=== PATIENT | male | born 1940 | race Two or more races ===

== ENCOUNTER 2018-03-03 13:34 | Outpatient (CLI) | payer OTHER | END 2018-03-03 13:40 | disposition home or self-care (01) | LOC: RAD 13:34 | DX: M54.5 Low back pain (principal) ==

== ENCOUNTER 2018-03-15 07:50 | Outpatient (CLI) | payer OTHER | END 2018-03-15 07:56 | disposition home or self-care (01) | LOC: TOM 07:50 | DX: Q41.9 Congenital absence, atresia and stenosis of small intestine, part unspecified (principal); E66.01 Morbid (severe) obesity due to excess calories; R06.09 Other forms of dyspnea ==

== ENCOUNTER 2019-07-16 14:39 | Emergency (ER) | payer OTHER ==
[~2019-07-16] VITALS: Ht 182.9 cm; Wt 142.9 kg
[2019-07-16] MEDS ORDERED: PRESERVISION A1 EAC1 (14:50)
[2019-07-16] MEDS ORDERED: SALMETEROL (14:50)
[2019-07-16] MEDS ORDERED: FLUTICASONE (14:50)
[2019-07-16] MEDS ORDERED: VALSARTAN-HCTZ1 EAC4 (14:51)
[2019-07-16] MEDS ORDERED: CARVEDILOL6.25 MG (14:51)
[2019-07-16] MEDS ORDERED: FUROSEMIDE40 MG (14:52)
[2019-07-16] MEDS ORDERED: ASPIR 8181 MG (14:52)
[2019-07-16] MEDS ORDERED: DOXAZOSIN MESYLA2 MG (14:52)
[2019-07-16] MEDS ORDERED: XOPENEX0.63 MG/3 (14:53)
[2019-07-16] MEDS ORDERED: XOLEGEL45 GM (14:53)
== END 2019-07-16 23:14 | disposition home or self-care (01) ==
LOC: ER 14:39
DX: K57.91 Diverticulosis of intestine, part unspecified, without perforation or abscess with bleeding (principal); D64.9 Anemia, unspecified

== ENCOUNTER 2019-12-12 15:27 | Outpatient (CLI) | payer OTHER ==
[~2019-12-12 15:27] MED LIST: ASPIR 8181 MG; CARVEDILOL6.25 MG; DOXAZOSIN MESYLA2 MG; FLUTICASONE; FUROSEMIDE40 MG; PRESERVISION A1 EAC1; SALMETEROL; VALSARTAN-HCTZ1 EAC4; XOLEGEL45 GM; XOPENEX0.63 MG/3
== END 2019-12-12 15:34 | disposition home or self-care (01) ==
LOC: RAD 15:27
PROVIDERS: ATTEND Family Medicine
DX: C34.12 Malignant neoplasm of upper lobe, left bronchus or lung (principal); M54.5 Low back pain

== ENCOUNTER 2020-06-07 13:51 | Outpatient (CLI) | payer OTHER | END 2020-06-07 14:11 | disposition home or self-care (01) | LOC: SONOGRAMA 13:51 | PROVIDERS: ATTEND Urology | DX: N40.0 Benign prostatic hyperplasia without lower urinary tract symptoms (principal); N32.81 Overactive bladder ==

== ENCOUNTER 2020-11-05 12:52 | Outpatient (CLI) | payer OTHER | END 2020-11-05 15:50 | disposition home or self-care (01) | LOC: RAD 12:52 | DX: C34.12 Malignant neoplasm of upper lobe, left bronchus or lung (principal) ==

== ENCOUNTER 2021-02-11 09:45 | Inpatient (IN) | payer OTHER ==
[~2021-02-11] VITALS: Ht 182.9 cm; Wt 127.0 kg
[2021-02-11] MEDS ORDERED: VALSARTAN80 MG PO (12:50)
[2021-02-11] MEDS ORDERED: LASIX40 MG PO (12:50)
[2021-02-11] MEDS ORDERED: DOCUSATE SODIU250 MG PO (12:51)
[2021-02-11] MEDS ORDERED: KONSYL6 GM PO (12:51)
[2021-02-11] MEDS ORDERED: TAMS0.4C PO (12:52)
[2021-02-11] MEDS ORDERED: SULFAMETH PO (12:52)
[2021-02-11] MEDS ORDERED: DITROPAN XL10 MG PO (12:52)
[2021-02-12] MEDS ORDERED: FLUTICASONE-SA1 EAC4 (11:50)
[2021-02-12] MEDS ORDERED: BACTRIM DS TAB1 EACH (11:50)
[2021-02-12] MEDS ORDERED: ADVAIR 100-501 EACH (11:51)
== END 2021-02-13 11:40 | disposition home or self-care (01) | DRG 714 ==
LOC: SURH 02-12 09:36 → O/R 02-12 09:36 → SURH 02-12 09:45
PROVIDERS: ADMIT Urology; ATTEND Urology
PROC: 0VT08ZZ Resection of Prostate, Via Natural or Artificial Opening Endoscopic (ICD-10-PCS; principal; 2021-02-12 18:15)
DX: N42.31 Prostatic intraepithelial neoplasia (principal); I10 Essential (primary) hypertension; N40.1 Benign prostatic hyperplasia with lower urinary tract symptoms; N32.81 Overactive bladder

== ENCOUNTER 2023-03-25 08:24 | Outpatient (CLI) | payer OTHER ==
[~2023-03-25 08:24] MED LIST changes: +ADVAIR 100-501 EACH; +BACTRIM DS TAB1 EACH; +DITROPAN XL10 MG PO; +DOCUSATE SODIU250 MG PO; +FLUTICASONE-SA1 EAC4; +KONSYL6 GM PO; +LASIX40 MG PO; +SULFAMETH PO; +TAMS0.4C PO; +VALSARTAN80 MG PO
== END 2023-03-25 08:27 | disposition home or self-care (01) ==
LOC: TOM 08:24
PROVIDERS: ATTEND Colon & Rectal Surgery
DX: K56.600 Partial intestinal obstruction, unspecified as to cause (principal)

== ENCOUNTER 2024-02-09 12:34 | Inpatient (IN) | payer OTHER ==
[~2024-02-09] VITALS: Ht 182.9 cm; Wt 255.8 kg
[2024-02-09] MEDS ORDERED: CARVEDILOL6.25 MG PO (13:34)
[2024-02-09] MEDS ORDERED: OXYBUTYNIN CHLO10 MG PO (13:34)
[2024-02-09] MEDS ORDERED: TERBINAFINE HC250 MG PO (13:36)
[2024-02-09] MEDS ORDERED: TRELEGY ELLIPT1 EACH NASAL (13:37)
--- NOTE | 2024-02-09 13:37 | NUR ---
PACIENTE REFIERE [place] ANAL HX DE HEMORROIDES, DESDE HACE 1 MES. SE ENCUENTRA EN TRATAMIENTO PARA DISMINUCION DE PESO ZEPBOUND SEMANAL DESDE HACE 3 MESES. JALLOH CARDIOLOGO DESCONTINUO ASPIRINA 81 MG POR EL [place]. SE MIDEN Y REPORTAN SIGNOS VITALES B/P-80/60 MM/HG, HR-87. SE UBICA EN AREA DE OBSERVACION.
[2024-02-09] MEDS ORDERED: 0.9 % SODIUM CHLORIDE 1,000 ML IV STA (14:17)
--- NOTE | 2024-02-09 14:44 | NUR ---
SE EDUCA A PACIENTE SOBRE TX MEDICO, HUEY REFIERE ENTENDER. SE EXTRAEN MUESTRAS DE LABORATORIO Y SE ADMINISTRAN MEDICAMENTOS VICKEY ORDEN MEDICA.
[2024-02-09 15:04] LABS: HEMATOCRIT 35.5 % (39.0-48.0); HEMOGLOBIN 11.8 g/dL (13-16.00); MEAN CELL VOLUME 83.6 fL (80.0-100.00); MEAN CORPUSCULAR HEMOGLOBIN 27.7 pg (27.00-32.0); MEAN CORPUSCULAR HGB CONC 33.2 g/dl (32.0-36.0); PLATELET COUNT 204 K/uL (150-450); RED BLOOD COUNT 4.24 M/uL (4.00-6.00); RED CELL DISTRIBUTION WIDTH 14.5 % (11.5-14.5)
[2024-02-09 15:25] LABS: ALBUMIN 2.6 gm/dL (3.4-5.0); BILIRUBIN TOTAL 0.72 mg/dL (0.3-1.2); BILIRUBIN,CONJUGATED 0.26 mg/dL (0.0-0.2); BILIRUBIN,UNCONJUGATED 0.46 mg/dL (0.0-0.6); CALCIUM 10.3 mg/dL (8.5-10.1); CREATININE SERUM 1.53 mg/dL (0.70-1.30); GFR 43.68; TOTAL PROTEIN 6.8 gm/dL (6.4-8.2)
[2024-02-09 15:26] LABS: INR 1.1; PARTIAL THROMBOPLASTIN TIME 30.8 SECONDS (22.0-34.0); PROTHROMBIN TIME 11.9 SECONDS (9.0-11.5)
[2024-02-09 15:30] LABS: POTASSIUM 2.92 mEq/L (3.5-5.1)
[2024-02-09] MEDS ORDERED: POTASSIUM CHLORIDE/NACL 0.9% 20 MEQ/1,000 ML PIGGYBAG IV ONE (16:00)
[2024-02-09 16:08] LABS: URINE APPEARANCE Clear; URINE BILIRRUBIN Negative (NEGATIVE); URINE BLOOD Negative; URINE COLOR Yellow; URINE GLUCOSE Negative (NEGATIVE); URINE KETONE Negative (NEGATIVE); URINE LEUKOCYTE Negative; URINE NITRATE Negative; URINE PROTEIN Negative (NEGATIVE); URINE UROBILINOGEN 0.2 E.U./dl
[2024-02-09 16:11] LABS: URINE BACTERIA 161.2 uL (0.0-1933); URINE CAST 3.51 uL (0.0-1.40); URINE EPITHELIAL CELLS 52.3 uL (0.0-38.8); URINE WBC 12.8 uL (0.0-23.2)
[2024-02-09] MEDS ORDERED: POLYETHYLENE GLYCOL 3350 17 GM BLIST.PACK PO ONE (19:45)
[2024-02-09] MEDS ORDERED: ACETAMINOPHEN 500 MG GEL..CAP PO PRN (19:45)
[2024-02-09] MEDS ORDERED: HYDROCORTISONE 2.5% 20 GM TUBE RECTAL SCH (19:45)
[2024-02-09] MEDS ORDERED: ONDANSETRON HCL 4 MG in 0.9 % SODIUM CHLORIDE 50 ML IV PRN (19:45)
[2024-02-09] MEDS ORDERED: 0.9 % SODIUM CHLORIDE 1,000 ML IV SCH (20:00)
[2024-02-09 20:56] LABS: MAGNESIUM 1.9 mg/dL (1.8-2.4)
[2024-02-09] MEDS ORDERED: CARVEDILOL 6.25 MG TABLET PO SCH (21:00)
[2024-02-09] MEDS ORDERED: POTASSIUM CHLORIDE IN WATER 100 ML IV SCH (21:00)
[2024-02-09 21:15] LABS: PHOSPHOROUS 1.8 mg/dL (2.5-4.9)
[2024-02-10] MEDS ORDERED: IPRATROPIUM BROMIDE 0.5 MG/2.5 ML AMPUL.NEB IH SCH (01:00)
[2024-02-10 03:26] VITALS: BP 118/70; O2SAT 96
[2024-02-10 06:47] LABS: ALBUMIN 2.5 gm/dL (3.4-5.0); BILIRUBIN TOTAL 0.65 mg/dL (0.3-1.2); CALCIUM 9.7 mg/dL (8.5-10.1); CREATININE SERUM 1.21 mg/dL (0.70-1.30); GFR 57.27; GLOBULINA 3.1 G/DL (2.4-3.5); POTASSIUM 3.31 mEq/L (3.5-5.1); TOTAL PROTEIN 5.6 gm/dL (6.4-8.2)
[2024-02-10] MEDS ORDERED: POTASSIUM PHOS,M-BASIC-D-BASIC 15 MM in 0.9 % SODIUM CHLORIDE 250 ML IV NR (08:15)
[2024-02-10 08:46] VITALS: BP 134/81
[2024-02-10] MEDS ORDERED: TAMSULOSIN HCL 0.4 MG CAP PO SCH (09:00)
[2024-02-10] MEDS ORDERED: FAMOTIDINE/PF 20 MG in 0.9 % SODIUM CHLORIDE 8 ML IV PUSH SCH (09:00)
[2024-02-10] MEDS ORDERED: OXYBUTYNIN CHLORIDE 5 MG TABLET PO SCH (09:00)
[2024-02-10] MEDS ORDERED: HYDROCORTISONE 2.5% 20 GM TUBE RECTAL SCH (09:00)
[2024-02-10] MEDS ORDERED: NAPH,MB-DB/K PH,MBDB 1 PKT PACKET PO SCH (09:00)
[2024-02-10] MEDS ORDERED: ENOXAPARIN SODIUM 40 MG/0.4 ML SYRINGE SUBCUTANEO SCH (09:00)
[2024-02-10] MEDS ORDERED: POTASSIUM CHLORIDE 20MEQ/100ML H2O PB IV NR (10:15)
[2024-02-10] MEDS ORDERED: AMINO ACIDS/PROTEIN HYDROLYS 30 ML BLIST.PACK PO SCH (17:00)
[2024-02-10 18:19] VITALS: BP 105/71; O2SAT 99
[2024-02-11 01:49] VITALS: BP 106/65; O2SAT 98
[2024-02-11 06:33] LABS: HEMATOCRIT 33.6 % (39.0-48.0); HEMOGLOBIN 11.5 g/dL (13-16.00); MEAN CELL VOLUME 84.5 fL (80.0-100.00); MEAN CORPUSCULAR HEMOGLOBIN 28.8 pg (27.00-32.0); MEAN CORPUSCULAR HGB CONC 34.1 g/dl (32.0-36.0); PLATELET COUNT 191 K/uL (150-450); RED BLOOD COUNT 3.98 M/uL (4.00-6.00); RED CELL DISTRIBUTION WIDTH 13.9 % (11.5-14.5)
[2024-02-11 06:42] LABS: CALCIUM 9.4 mg/dL (8.5-10.1); CREATININE SERUM 1.06 mg/dL (0.70-1.30); GFR 66.72; MAGNESIUM 1.7 mg/dL (1.8-2.4); PHOSPHOROUS 2.4 mg/dL (2.5-4.9); POTASSIUM 3.67 mEq/L (3.5-5.1)
[2024-02-11] MEDS ORDERED: POTASSIUM PHOS,M-BASIC-D-BASIC 15 MM in 0.9 % SODIUM CHLORIDE 250 ML IV NR (07:45)
[2024-02-11] MEDS ORDERED: MAGNESIUM SULFATE IN WATER 2 GM/50 ML PIGGYBAG IV NR (08:16)
[2024-02-11 09:44] VITALS: BP 124/72
== END 2024-02-11 11:35 | disposition home or self-care (01) | DRG 378 ==
LOC: ER 12:35 → MEDJ 20:16
PROVIDERS: General Practice; ADMIT Internal Medicine; ATTEND Internal Medicine
PROC: BW21ZZZ Computerized Tomography (CT Scan) of Abdomen and Pelvis (ICD-10-PCS; principal; 2024-02-09)
DX: K62.5 Hemorrhage of anus and rectum (principal); I13.0 Hypertensive heart and chronic kidney disease with heart failure and stage 1 through stage 4 chronic kidney disease, or unspecified chronic kidney disease; N17.9 Acute kidney failure, unspecified; I50.9 Heart failure, unspecified; E87.6 Hypokalemia; E78.5 Hyperlipidemia, unspecified; E11.22 Type 2 diabetes mellitus with diabetic chronic kidney disease; N18.9 Chronic kidney disease, unspecified; Z79.4 Long term (current) use of insulin

== ENCOUNTER 2024-03-03 21:01 | Inpatient (IN) | payer OTHER ==
[~2024-03-03] VITALS: Ht 182.9 cm; Wt 122.5 kg
[~2024-03-03 21:01] MED LIST changes: +CARVEDILOL6.25 MG PO; +OXYBUTYNIN CHLO10 MG PO; +TERBINAFINE HC250 MG PO; +TRELEGY ELLIPT1 EACH NASAL
--- NOTE | 2024-03-03 21:26 | NUR ---
SE RECIBE PTE ALERTA Y ORIENTADO EN PERSONA EN AMBULNACIA EN COMPANIA DE FAMILIAR Y PARAMEDICOS. FAMILIAR REFIERE DEBILIDAD DESDE HACE VARIOS OSHEA. SE REALIZA EKG Y SE PRESENTA A DR. AUSTIN EL CUAL EVALUA Y FIRMA EL MISMO,
[2024-03-03 22:23] LABS: HEMATOCRIT 31.1 % (39.0-48.0); HEMOGLOBIN 10.4 g/dL (13-16.00); MEAN CELL VOLUME 82.8 fL (80.0-100.00); MEAN CORPUSCULAR HEMOGLOBIN 27.8 pg (27.00-32.0); MEAN CORPUSCULAR HGB CONC 33.6 g/dl (32.0-36.0); PLATELET COUNT 304 K/uL (150-450); RED BLOOD COUNT 3.75 M/uL (4.00-6.00); RED CELL DISTRIBUTION WIDTH 14.6 % (11.5-14.5)
[2024-03-03 22:38] LABS: CALCIUM 9.7 mg/dL (8.5-10.1); CREATININE SERUM 1.28 mg/dL (0.70-1.30); GFR 53.67; POTASSIUM 4.15 mEq/L (3.5-5.1)
--- NOTE | 2024-03-03 23:00 | NUR ---
SE RECIBE PTE ALERTA ORIENTADO X3 EN ELIZABETH CON BARANDAS ELEVADAS POR JALLOH SEGURIDAD.PENDIENTE CT Y RESULTADOS DE LABORATORIO.
[2024-03-04 00:27] LABS: ABG PH 7.445 (7.35-7.45); ABG PO2 67.9 mmHg (80-100); ABG pCO2 38.3 mmHg (35-45); BASE EXCESS 1.8 mmol/l; BICARBONATE 25.7 mmol/l (23-25); SaO2 94.2 %
[2024-03-04 00:28] LABS: Tco2 26.9 mmol/l; allen test SATISFACTORY; o2 21 %; puncture site RADIAL LEFT
[2024-03-04 00:56] LABS: URINE APPEARANCE Cloudy; URINE BILIRRUBIN Negative (NEGATIVE); URINE BLOOD Negative; URINE COLOR Yellow; URINE GLUCOSE Negative (NEGATIVE); URINE KETONE Negative (NEGATIVE); URINE LEUKOCYTE Negative; URINE NITRATE Negative; URINE PROTEIN 30 (NEGATIVE); URINE UROBILINOGEN 0.2 E.U./dl
[2024-03-04 01:00] LABS: URINE BACTERIA 28.9 uL (0.0-1933); URINE CAST 5.64 uL (0.0-1.40); URINE EPITHELIAL CELLS 51.1 uL (0.0-38.8); URINE RBC 6.5 uL (0.0-20.8); URINE WBC 8.8 uL (0.0-23.2)
[2024-03-04] MEDS ORDERED: levoFLOXacin IN DEXTROSE 5 % 500MG/100ML PIGGYBAG IV STA (03:48)
--- NOTE | 2024-03-04 05:17 | NUR ---
SE RECIBE PTE ALERTA ORIENTADO X3.SE KAREN MUESTRAS DE LABATORIO USANDO MEDIDAS ASEPTICAS.SE ADMINISTRAN MEDICAMENTOS VICKEY ORDEN MEDICA.PTE MANEJADO POR MICHELE BOUDREAUX.
[2024-03-04 06:09] LABS: INR 1.13; PARTIAL THROMBOPLASTIN TIME 29.5 SECONDS (22.0-34.0); PROTHROMBIN TIME 12.2 SECONDS (9.0-11.5)
[2024-03-04 06:13] LABS: ALBUMIN 1.8 gm/dL (3.4-5.0); BILIRUBIN TOTAL 0.36 mg/dL (0.3-1.2); CALCIUM 10.3 mg/dL (8.5-10.1); CREATININE SERUM 1.41 mg/dL (0.70-1.30); GLOBULINA 4.4 G/DL (2.4-3.5); POTASSIUM 4.35 mEq/L (3.5-5.1); TOTAL PROTEIN 6.2 gm/dL (6.4-8.2)
--- NOTE | 2024-03-04 08:26 | NUR ---
SE RECIBE PACIENTE ALERTA Y ORIENTADO X3 EN COMPANIA DE FAMILIAR EL CUAL AL MOMENTO SE ENCUENTRA EN POSICION SEMI SENTADA CON ANGIO #18 EN STACIAO CON. SE MANTIENE BAJO OBSERVACION PARA CONTIUIDAD DE TRATAMIENTO.
[2024-03-04] MEDS ORDERED: 0.9 % SODIUM CHLORIDE 1,000 ML IV SCH (18:45)
[2024-03-04] MEDS ORDERED: IPRATROPIUM BROMIDE 0.5 MG/2.5 ML AMPUL.NEB IH SCH (18:47)
[2024-03-04] MEDS ORDERED: PIPERACILLIN/TAZOBACTAM SODIUM 3.375 GM in DEXTROSE 5 % IN WATER 100 ML IV SCH (18:49)
[2024-03-04] MEDS ORDERED: ACETAMINOPHEN 500 MG GEL..CAP PO PRN (19:00)
[2024-03-04] MEDS ORDERED: LEVALBUTEROL HCL 1.25 MG/3 ML SOLUTION IH SCH (20:00)
[2024-03-04] MEDS ORDERED: CARVEDILOL 6.25 MG TABLET PO SCH (21:00)
[2024-03-04 21:13] VITALS: BP 101/63; O2SAT 96
[2024-03-04 21:44] LABS: INR 1.14; PARTIAL THROMBOPLASTIN TIME 29.1 SECONDS (22.0-34.0); PROTHROMBIN TIME 12.3 SECONDS (9.0-11.5)
[2024-03-04 23:54] VITALS: BP 109/72; O2SAT 95
[2024-03-05] MEDS ORDERED: ENOXAPARIN SODIUM 40 MG/0.4 ML SYRINGE SUBCUTANEO SCH (09:00)
[2024-03-05] MEDS ORDERED: TAMSULOSIN HCL 0.4 MG CAP PO SCH (09:00)
[2024-03-05] MEDS ORDERED: FAMOTIDINE/PF 20 MG in 0.9 % SODIUM CHLORIDE 8 ML IV PUSH SCH (09:00)
[2024-03-05] MEDS ORDERED: MAGNESIUM SULFATE IN WATER 50 ML IV ONE (10:00)
[2024-03-05 16:50] VITALS: BP 112/76; O2SAT 93
[2024-03-05 23:46] VITALS: BP 115/71; O2SAT 98
[2024-03-06 06:20] LABS: HEMATOCRIT 30.3 % (39.0-48.0); HEMOGLOBIN 10.1 g/dL (13-16.00); MEAN CORPUSCULAR HEMOGLOBIN 27.6 pg (27.00-32.0); MEAN CORPUSCULAR HGB CONC 33.2 g/dl (32.0-36.0); PLATELET COUNT 287 K/uL (150-450); RED BLOOD COUNT 3.65 M/uL (4.00-6.00); RED CELL DISTRIBUTION WIDTH 14.4 % (11.5-14.5)
[2024-03-06 07:18] LABS: CALCIUM 9.5 mg/dL (8.5-10.1); CREATININE SERUM 1.49 mg/dL (0.70-1.30); GFR 45.04; POTASSIUM 4.49 mEq/L (3.5-5.1)
[2024-03-06 08:00] VITALS: BP 118/71; O2SAT 96
[2024-03-06] MEDS ORDERED: CEFTRIAXONE SODIUM 2,000 MG in 0.9 % SODIUM CHLORIDE 100 ML IV SCH (09:00)
[2024-03-06] MEDS ORDERED: METRONIDAZOLE/SODIUM CHLORIDE 100 ML IV SCH (09:00)
[2024-03-06 16:07] VITALS: BP 166/92; O2SAT 97
[2024-03-07 00:45] VITALS: BP 133/83; O2SAT 94
[2024-03-07 08:00] VITALS: BP 128/80; O2SAT 99
[2024-03-07 16:00] VITALS: BP 141/92; O2SAT 96
[2024-03-07 17:45] LABS: HEMATOCRIT 31.1 % (39.0-48.0); HEMOGLOBIN 10.2 g/dL (13-16.00); MEAN CELL VOLUME 83.5 fL (80.0-100.00); MEAN CORPUSCULAR HEMOGLOBIN 27.3 pg (27.00-32.0); MEAN CORPUSCULAR HGB CONC 32.7 g/dl (32.0-36.0); PLATELET COUNT 305 K/uL (150-450); RED BLOOD COUNT 3.73 M/uL (4.00-6.00); RED CELL DISTRIBUTION WIDTH 14.9 % (11.5-14.5)
[2024-03-07 17:50] LABS: ALBUMIN 1.5 gm/dL (3.4-5.0); BILIRUBIN TOTAL 0.27 mg/dL (0.3-1.2); CALCIUM 9.7 mg/dL (8.5-10.1); CREATININE SERUM 1.5 mg/dL (0.70-1.30); GFR 44.69; GLOBULINA 3.5 G/DL (2.4-3.5); POTASSIUM 4.51 mEq/L (3.5-5.1)
[2024-03-08 00:59] VITALS: BP 131/74; O2SAT 90
[2024-03-08 08:00] VITALS: BP 129/91; O2SAT 91
[2024-03-08 10:52] LABS: ABG PH 7.402 (7.35-7.45); ABG PO2 65.8 mmHg (80-100); ABG pCO2 35.6 mmHg (35-45); BASE EXCESS -2.4 mmol/l; BICARBONATE 21.7 mmol/l (23-25); SaO2 92.6 %; Tco2 22.8 mmol/l
[2024-03-08 11:00] LABS: allen test SATISFACTORY; o2 28 %; puncture site RADIAL RIGHT
[2024-03-08] MEDS ORDERED: FUROsemide 20 MG/2 ML VIAL IV NR (14:00)
[2024-03-08 15:33] LABS: HEMATOCRIT 30.9 % (39.0-48.0); HEMOGLOBIN 9.9 g/dL (13-16.00); MEAN CELL VOLUME 84.4 fL (80.0-100.00); MEAN CORPUSCULAR HEMOGLOBIN 27.1 pg (27.00-32.0); MEAN CORPUSCULAR HGB CONC 32.1 g/dl (32.0-36.0); PLATELET COUNT 284 K/uL (150-450); RED BLOOD COUNT 3.67 M/uL (4.00-6.00); RED CELL DISTRIBUTION WIDTH 14.6 % (11.5-14.5)
[2024-03-08 16:10] VITALS: BP 131/76; O2SAT 90
[2024-03-08 20:03] LABS: PLEURAL FLUID APPEARANCE HAZY; PLEURAL FLUID COLOR YELLOW
[2024-03-08 20:22] LABS: GLU PLEURAL FLUID 126 mg/dl; LDH PLEURAL FLUID 67 U/L; TP PLEURAL FLUID 1.8 g/dl
[2024-03-08 20:31] LABS: CHOL PLEURAL FLUID < 50 mg/dl
[2024-03-08 21:37] LABS: MONONUCLEAR 88 %; POLYMORPHONUCLEAR 12 %
[2024-03-09 00:20] VITALS: BP 106/76; O2SAT 92
[2024-03-09] MEDS ORDERED: MEROPENEM 500 MG/VIAL VIAL IV SCH (06:00)
[2024-03-09] MEDS ORDERED: 0.9 % SODIUM CHLORIDE 1,000 ML IV SCH ×2 (09:00→09:15)
[2024-03-09] MEDS ORDERED: FUROsemide 20 MG/2 ML VIAL IV SCH (09:00)
[2024-03-09 09:03] LABS: HEMATOCRIT 31.5 % (39.0-48.0); HEMOGLOBIN 10.3 g/dL (13-16.00); MEAN CELL VOLUME 83.7 fL (80.0-100.00); MEAN CORPUSCULAR HEMOGLOBIN 27.4 pg (27.00-32.0); MEAN CORPUSCULAR HGB CONC 32.8 g/dl (32.0-36.0); PLATELET COUNT 295 K/uL (150-450); RED BLOOD COUNT 3.77 M/uL (4.00-6.00); RED CELL DISTRIBUTION WIDTH 14.8 % (11.5-14.5)
[2024-03-09 09:16] VITALS: BP 113/73; O2SAT 81
[2024-03-09 09:43] LABS: ALBUMIN 1.5 gm/dL (3.4-5.0); BILIRUBIN TOTAL 0.3 mg/dL (0.3-1.2); CALCIUM 9.9 mg/dL (8.5-10.1); CREATININE SERUM 1.61 mg/dL (0.70-1.30); GFR 41.19; GLOBULINA 3.1 G/DL (2.4-3.5); POTASSIUM 4.59 mEq/L (3.5-5.1); TOTAL PROTEIN 4.6 gm/dL (6.4-8.2)
[2024-03-09 11:41] LABS: URINE APPEARANCE Cloudy; URINE BILIRRUBIN Negative (NEGATIVE); URINE BLOOD Large; URINE COLOR Yellow; URINE GLUCOSE Negative (NEGATIVE); URINE KETONE Negative (NEGATIVE); URINE LEUKOCYTE Small; URINE NITRATE Negative; URINE PROTEIN 30 (NEGATIVE); URINE UROBILINOGEN 0.2 E.U./dl
[2024-03-09 11:42] LABS: URINE BACTERIA 2887.8 uL (0.0-1933); URINE EPITHELIAL CELLS 83.4 uL (0.0-38.8); URINE RBC 11.6 uL (0.0-20.8); URINE WBC 210.8 uL (0.0-23.2)
[2024-03-09 12:22] LABS: URINE CAST > 21.83 uL (0.0-1.40)
[2024-03-09 12:23] LABS: URINE CRYSTALS MODERATE /HPF
[2024-03-09 16:00] VITALS: BP 129/61; O2SAT 95
[2024-03-10] VITALS: BP 121/77; O2SAT 95
[2024-03-10 07:14] LABS: C-REACTIVE PROTEIN 12.4 MG/DL (0.00-0.29)
[2024-03-10 07:28] LABS: ERYTHROCYTE SEDIMENTATION RATE 86 mm/hr
[2024-03-10 08:27] LABS: PLATELET ESTIMATE NORMAL (NORMAL)
[2024-03-10 09:39] VITALS: BP 105/70; O2SAT 94
[2024-03-10 16:00] VITALS: BP 100/65; O2SAT 95
[2024-03-11 00:20] VITALS: BP 108/72; O2SAT 93
[2024-03-11 08:29] VITALS: BP 93/61; O2SAT 84
[2024-03-11] MEDS ORDERED: FLUCONAZOLE IN NACL,ISO-OSM 200 MG/100 ML PIGGYBAG IV NR (14:00)
[2024-03-11] MEDS ORDERED: LINEZOLID IN DEXTROSE 5% 600 MG/300 ML PIGGYBAG IV NR (14:00)
[2024-03-11 16:00] VITALS: BP 132/82; O2SAT 95
[2024-03-11 19:27] LABS: ABG PH 7.356 (7.35-7.45); ABG PO2 78.7 mmHg (80-100); ABG pCO2 41.1 mmHg (35-45); SaO2 94.7 %
[2024-03-11 19:28] LABS: BASE EXCESS -2.8 mmol/l; BICARBONATE 22.5 mmol/l (23-25); Tco2 23.8 mmol/l; allen test SATISFACTORY; o2 50 %; puncture site RADIAL RIGHT
[2024-03-11] MEDS ORDERED: LINEZOLID IN DEXTROSE 5% 300 ML IV SCH (21:00)
[2024-03-12 00:56] VITALS: BP 94/67; O2SAT 93
[2024-03-12 07:47] LABS: HEMATOCRIT 32.2 % (39.0-48.0); HEMOGLOBIN 10.2 g/dL (13-16.00); MEAN CELL VOLUME 85.2 fL (80.0-100.00); MEAN CORPUSCULAR HEMOGLOBIN 26.9 pg (27.00-32.0); MEAN CORPUSCULAR HGB CONC 31.5 g/dl (32.0-36.0); PLATELET COUNT 322 K/uL (150-450); RED BLOOD COUNT 3.78 M/uL (4.00-6.00); RED CELL DISTRIBUTION WIDTH 15.2 % (11.5-14.5)
[2024-03-12 08:00] VITALS: BP 86/57; O2SAT 96
[2024-03-12 08:01] LABS: ALBUMIN 1.5 gm/dL (3.4-5.0); BILIRUBIN TOTAL 0.26 mg/dL (0.3-1.2); CREATININE SERUM 2.08 mg/dL (0.70-1.30); GFR 30.65; GLOBULINA 3.1 G/DL (2.4-3.5); POTASSIUM 4.77 mEq/L (3.5-5.1); TOTAL PROTEIN 4.6 gm/dL (6.4-8.2)
[2024-03-12] MEDS ORDERED: FLUCONAZOLE IN NACL,ISO-OSM 100 ML IV SCH (09:00)
[2024-03-12] MEDS ORDERED: MEROPENEM 500 MG/VIAL VIAL IV SCH (09:00)
[2024-03-12 11:55] VITALS: BP 93/60; O2SAT 95
[2024-03-12 13:12] LABS: HEMATOCRIT 32.5 % (39.0-48.0); HEMOGLOBIN 10.3 g/dL (13-16.00); MEAN CELL VOLUME 85.3 fL (80.0-100.00); MEAN CORPUSCULAR HEMOGLOBIN 27.1 pg (27.00-32.0); MEAN CORPUSCULAR HGB CONC 31.7 g/dl (32.0-36.0); PLATELET COUNT 303 K/uL (150-450); RED BLOOD COUNT 3.81 M/uL (4.00-6.00); RED CELL DISTRIBUTION WIDTH 15.3 % (11.5-14.5)
[2024-03-12 16:00] VITALS: BP 105/73; O2SAT 96
[2024-03-13 00:31] VITALS: BP 93/63; O2SAT 94
[2024-03-13 07:10] LABS: MEAN CELL VOLUME 84.1 fL (80.0-100.00); MEAN CORPUSCULAR HGB CONC 32.5 g/dl (32.0-36.0); PLATELET COUNT 334 K/uL (150-450); RED BLOOD COUNT 3.68 M/uL (4.00-6.00); RED CELL DISTRIBUTION WIDTH 14.8 % (11.5-14.5)
[2024-03-13 07:14] LABS: HEMOGLOBIN 10.1 g/dL (13-16.00); MEAN CORPUSCULAR HEMOGLOBIN 27.4 pg (27.00-32.0)
[2024-03-13 07:36] LABS: ALBUMIN 1.3 gm/dL (3.4-5.0); CALCIUM 9.9 mg/dL (8.5-10.1); GFR 32.07; PHOSPHOROUS 4.4 mg/dL (2.5-4.9); POTASSIUM 4.62 mEq/L (3.5-5.1)
[2024-03-13 07:41] VITALS: BP 95/61; O2SAT 95
[2024-03-13] MEDS ORDERED: ENOXAPARIN SODIUM 30 MG/0.3 ML SYRINGE SUBCUTANEO SCH (09:00)
[2024-03-13 16:00] VITALS: BP 124/81; O2SAT 97
[2024-03-14] VITALS: BP 90/61; O2SAT 95
[2024-03-14 07:34] LABS: ALBUMIN 1.2 gm/dL (3.4-5.0); BILIRUBIN TOTAL 0.32 mg/dL (0.3-1.2); CALCIUM 9.8 mg/dL (8.5-10.1); CREATININE SERUM 2.13 mg/dL (0.70-1.30); GFR 29.82; GLOBULINA 3.1 G/DL (2.4-3.5); POTASSIUM 4.69 mEq/L (3.5-5.1); TOTAL PROTEIN 4.3 gm/dL (6.4-8.2)
[2024-03-14 07:41] LABS: HEMATOCRIT 30.2 % (39.0-48.0); HEMOGLOBIN 9.5 g/dL (13-16.00); MEAN CELL VOLUME 84.2 fL (80.0-100.00); MEAN CORPUSCULAR HEMOGLOBIN 26.5 pg (27.00-32.0); MEAN CORPUSCULAR HGB CONC 31.5 g/dl (32.0-36.0); PLATELET COUNT 317 K/uL (150-450); RED BLOOD COUNT 3.59 M/uL (4.00-6.00); RED CELL DISTRIBUTION WIDTH 15.1 % (11.5-14.5)
[2024-03-14 09:10] VITALS: BP 114/72; O2SAT 94
[2024-03-15] VITALS: BP 134/81; O2SAT 94
[2024-03-15 07:01] LABS: HEMATOCRIT 29.3 % (39.0-48.0); MEAN CELL VOLUME 83.7 fL (80.0-100.00); MEAN CORPUSCULAR HGB CONC 32.2 g/dl (32.0-36.0); PLATELET COUNT 315 K/uL (150-450); RED BLOOD COUNT 3.51 M/uL (4.00-6.00); RED CELL DISTRIBUTION WIDTH 14.7 % (11.5-14.5)
[2024-03-15 07:04] LABS: ALBUMIN 1.2 gm/dL (3.4-5.0); BILIRUBIN TOTAL 0.33 mg/dL (0.3-1.2); CALCIUM 9.8 mg/dL (8.5-10.1); CREATININE SERUM 2.08 mg/dL (0.70-1.30); GFR 30.65; GLOBULINA 3.1 G/DL (2.4-3.5); POTASSIUM 4.89 mEq/L (3.5-5.1); TOTAL PROTEIN 4.3 gm/dL (6.4-8.2)
[2024-03-15] MEDS ORDERED: MEROPENEM 1,000 MG in 0.9 % SODIUM CHLORIDE 100 ML IV SCH (09:00)
[2024-03-15 09:10] LABS: HEMOGLOBIN 9.4 g/dL (13-16.00); MEAN CORPUSCULAR HEMOGLOBIN 26.7 pg (27.00-32.0)
[2024-03-15 09:17] VITALS: BP 112/71; O2SAT 94
[2024-03-15 16:00] VITALS: BP 119/62; O2SAT 98
[2024-03-15] MEDS ORDERED: MICONAZOLE NITRATE 92 GM CREAM.GM. TOP SCH (21:25)
[2024-03-16] VITALS (8 sets, daily range): BP systolic 78–133; BP diastolic 56–77; O2SAT 91–98
[2024-03-16] MEDS ORDERED: NOREPINEPHRINE BITARTRATE 1 MG/ML AMPUL IV STA ×2 (08:54)
[2024-03-16] MEDS ORDERED: NOREPINEPHRINE BITARTRATE 8 MG in DEXTROSE 5 % IN WATER 250 ML IV SCH ×2 (09:15→13:45)
[2024-03-16] MEDS ORDERED: FLUCONAZOLE IN NACL,ISO-OSM 100 ML IV SCH (17:00)
[2024-03-16 23:48] LABS: URINE APPEARANCE Cloudy; URINE BILIRRUBIN Negative (NEGATIVE); URINE BLOOD Moderate; URINE COLOR Yellow; URINE GLUCOSE Negative (NEGATIVE); URINE KETONE Negative (NEGATIVE); URINE LEUKOCYTE Trace; URINE NITRATE Negative; URINE PROTEIN 30 (NEGATIVE); URINE UROBILINOGEN 0.2 E.U./dl
[2024-03-16 23:51] LABS: URINE BACTERIA 3452.3 uL (0.0-1933); URINE CAST 5.19 uL (0.0-1.40); URINE EPITHELIAL CELLS 26.2 uL (0.0-38.8); URINE RBC 51.6 uL (0.0-20.8); URINE WBC 62.3 uL (0.0-23.2)
[2024-03-17] VITALS: BP 101/67; O2SAT 93
[2024-03-17 01:41] LABS: URINE MUCUS NEGATIVE
[2024-03-17 08:42] VITALS: BP 96/65; O2SAT 92
[2024-03-17 11:15] LABS: HEMATOCRIT 31.2 % (39.0-48.0); HEMOGLOBIN 10.1 g/dL (13-16.00); MEAN CORPUSCULAR HEMOGLOBIN 26.8 pg (27.00-32.0); MEAN CORPUSCULAR HGB CONC 32.3 g/dl (32.0-36.0); PLATELET COUNT 358 K/uL (150-450); RED BLOOD COUNT 3.76 M/uL (4.00-6.00)
[2024-03-17 12:17] LABS: BILIRUBIN TOTAL 0.25 mg/dL (0.3-1.2); CALCIUM 9.5 mg/dL (8.5-10.1); CREATININE SERUM 2.35 mg/dL (0.70-1.30); GFR 26.62; GLOBULINA 2.9 G/DL (2.4-3.5); POTASSIUM 5.59 mEq/L (3.5-5.1); TOTAL PROTEIN 3.9 gm/dL (6.4-8.2)
[2024-03-17 12:30] VITALS: BP 115/76; O2SAT 97
[2024-03-17] MEDS ORDERED: (FF) Daptomycin 50 MG/ML IV STA (14:07)
[2024-03-17 16:00] VITALS: BP 110/78; O2SAT 93
[2024-03-17] MEDS ORDERED: (FF) Daptomycin 50 MG/ML IV SCH (17:00)
[2024-03-17] MEDS ORDERED: CEFTAROLINE FOSAMIL ACETATE IV SCH ×2 (17:00→21:00)
[2024-03-17 17:23] VITALS: BP 90/65; O2SAT 95
[2024-03-17 20:09] VITALS: BP 105/72; O2SAT 94
[2024-03-17] MEDS ORDERED: CEFTAROLINE FOSAMIL ACETATE IV ONE (21:00)
[2024-03-18 01:00] VITALS: BP 111/71; O2SAT 93
[2024-03-18 08:00] VITALS: BP 110/79; O2SAT 93
[2024-03-18 08:24] LABS: ALBUMIN 1.1 gm/dL (3.4-5.0); BILIRUBIN TOTAL 0.34 mg/dL (0.3-1.2); CALCIUM 9.8 mg/dL (8.5-10.1); CREATININE SERUM 2.5 mg/dL (0.70-1.30); GFR 24.79; GLOBULINA 3.6 G/DL (2.4-3.5); TOTAL PROTEIN 4.7 gm/dL (6.4-8.2)
[2024-03-18] MEDS ORDERED: CEFTAROLINE FOSAMIL ACETATE IV SCH (09:00)
[2024-03-18 09:09] LABS: HEMATOCRIT 31.9 % (39.0-48.0); HEMOGLOBIN 10.1 g/dL (13-16.00); MEAN CELL VOLUME 83.5 fL (80.0-100.00); MEAN CORPUSCULAR HEMOGLOBIN 26.5 pg (27.00-32.0); MEAN CORPUSCULAR HGB CONC 31.7 g/dl (32.0-36.0); PLATELET COUNT 366 K/uL (150-450); RED BLOOD COUNT 3.81 M/uL (4.00-6.00)
[2024-03-18 09:13] LABS: POTASSIUM 6.03 mEq/L (3.5-5.1)
[2024-03-18] MEDS ORDERED: SODIUM POLYSTYRENE SULFONATE 30G/8 TSP PO SCH (14:00)
[2024-03-18 16:50] VITALS: BP 125/84; O2SAT 91
[2024-03-18] MEDS ORDERED: (FF) Daptomycin 50 MG/ML IV SCH (17:00)
[2024-03-18] MEDS ORDERED: CARVEDILOL 3.125 MG TABLET PO SCH (21:00)
[2024-03-19 00:25] VITALS: BP 128/87; O2SAT 92
[2024-03-19 08:30] LABS: ALBUMIN 1.2 gm/dL (3.4-5.0); BILIRUBIN TOTAL 0.33 mg/dL (0.3-1.2); CREATININE SERUM 2.82 mg/dL (0.70-1.30); GFR 21.57; GLOBULINA 3.4 G/DL (2.4-3.5); POTASSIUM 5.13 mEq/L (3.5-5.1); TOTAL PROTEIN 4.6 gm/dL (6.4-8.2)
[2024-03-19 08:47] VITALS: BP 99/72; O2SAT 91
[2024-03-19] MEDS ORDERED: ONDANSETRON HCL 2 MG/ML VIAL IV PRN (09:15)
[2024-03-19] MEDS ORDERED: PANTOPRAZOLE SODIUM 80 MG in 0.9 % SODIUM CHLORIDE 100 ML IV SCH (09:15)
[2024-03-19 11:52] LABS: HEMATOCRIT 32.4 % (39.0-48.0); HEMOGLOBIN 10.3 g/dL (13-16.00); MEAN CORPUSCULAR HEMOGLOBIN 26.3 pg (27.00-32.0); MEAN CORPUSCULAR HGB CONC 31.7 g/dl (32.0-36.0); PLATELET COUNT 462 K/uL (150-450); RED BLOOD COUNT 3.91 M/uL (4.00-6.00); RED CELL DISTRIBUTION WIDTH 15.1 % (11.5-14.5)
[2024-03-19 12:05] LABS: INR 1.15; PARTIAL THROMBOPLASTIN TIME 32.8 SECONDS (22.0-34.0); PROTHROMBIN TIME 12.4 SECONDS (9.0-11.5)
[2024-03-19 17:00] VITALS: BP 119/74; O2SAT 89
[2024-03-19] MEDS ORDERED: CEFTAROLINE FOSAMIL ACETATE IV SCH (21:00)
[2024-03-19] MEDS ORDERED: MEROPENEM 500 MG/VIAL VIAL IV SCH (21:00)
[2024-03-20 00:43] VITALS: BP 113/74; O2SAT 94
[2024-03-20 08:00] VITALS: BP 118/82; O2SAT 97
[2024-03-20] MEDS ORDERED: CEFTAROLINE FOSAMIL ACETATE IV SCH (13:00)
[2024-03-20 16:15] VITALS: BP 126/82; O2SAT 93
[2024-03-20] MEDS ORDERED: (FF) Daptomycin 50 MG/ML IV SCH (17:00)
[2024-03-21] VITALS: BP 143/74; O2SAT 91
[2024-03-21 08:00] VITALS: BP 85/56; O2SAT 93
[2024-03-21 10:00] VITALS: BP 90/53; O2SAT 95
[2024-03-21 16:00] VITALS: BP 80/70; O2SAT 95
[2024-03-21] MEDS ORDERED: LIDOCAINE HCL 1% 10ML VIAL PERCUT ONE (20:00)
[2024-03-21 20:34] LABS: HEMATOCRIT 29.7 % (39.0-48.0); HEMOGLOBIN 9.2 g/dL (13-16.00); MEAN CELL VOLUME 84.5 fL (80.0-100.00); MEAN CORPUSCULAR HEMOGLOBIN 26.2 pg (27.00-32.0); PLATELET COUNT 297 K/uL (150-450); RED BLOOD COUNT 3.52 M/uL (4.00-6.00); RED CELL DISTRIBUTION WIDTH 15.2 % (11.5-14.5)
[2024-03-21 21:00] VITALS: BP 80/60; O2SAT 97
[2024-03-21 21:26] LABS: ALBUMIN 1.2 gm/dL (3.4-5.0); BILIRUBIN TOTAL 0.37 mg/dL (0.3-1.2); CALCIUM 9.1 mg/dL (8.5-10.1); CREATININE SERUM 3.84 mg/dL (0.70-1.30); GFR 15.11; GLOBULINA 3.2 G/DL (2.4-3.5); POTASSIUM 4.41 mEq/L (3.5-5.1); TOTAL PROTEIN 4.4 gm/dL (6.4-8.2)
[2024-03-22 01:41] VITALS: BP 83/403; O2SAT 96
[2024-03-22 07:59] VITALS: O2SAT 93
== END 2024-03-22 11:42 | disposition expired | DRG 193 ==
LOC: ER 21:01 → SEC-K 03-04 19:17 → SURG 03-04 19:17
PROVIDERS: Emergency Medicine; General Practice; Internal Medicine; Internal Medicine Hematology & Oncology; Internal Medicine Infectious Disease; Internal Medicine Nephrology; Radiology Vascular & Interventional Radiology; Student in an Organized Health Care Education/Training Program; ADMIT Internal Medicine; ATTEND Internal Medicine
PROC: BW24ZZZ Computerized Tomography (CT Scan) of Chest and Abdomen (ICD-10-PCS; 2024-03-04)
PROC: B24BZZZ Ultrasonography of Heart with Aorta (ICD-10-PCS; 2024-03-07)
PROC: 0W993ZX Drainage of Right Pleural Cavity, Percutaneous Approach, Diagnostic (ICD-10-PCS; principal; 2024-03-08)
PROC: 0W9B3ZZ Drainage of Left Pleural Cavity, Percutaneous Approach (ICD-10-PCS; 2024-03-09)
PROC: BW21YZZ Computerized Tomography (CT Scan) of Abdomen and Pelvis using Other Contrast (ICD-10-PCS; 2024-03-10)
PROC: BT4JZZZ Ultrasonography of Kidneys and Bladder (ICD-10-PCS; 2024-03-13)
PROC: BW40ZZZ Ultrasonography of Abdomen (ICD-10-PCS; 2024-03-17)
PROC: 05HM33Z Insertion of Infusion Device into Right Internal Jugular Vein, Percutaneous Approach (ICD-10-PCS; 2024-03-21)
DX: J18.9 Pneumonia, unspecified organism (principal); A41.1 Sepsis due to other specified staphylococcus; T80.211A Bloodstream infection due to central venous catheter, initial encounter; R65.21 Severe sepsis with septic shock; C78.7 Secondary malignant neoplasm of liver and intrahepatic bile duct; N17.9 Acute kidney failure, unspecified; N39.0 Urinary tract infection, site not specified; E46 Unspecified protein-calorie malnutrition; K92.2 Gastrointestinal hemorrhage, unspecified; R09.02 Hypoxemia; E66.01 Morbid (severe) obesity due to excess calories; G47.33 Obstructive sleep apnea (adult) (pediatric); K64.8 Other hemorrhoids; R41.82 Altered mental status, unspecified; N18.9 Chronic kidney disease, unspecified; B96.89 Other specified bacterial agents as the cause of diseases classified elsewhere; N48.1 Balanitis; B95.7 Other staphylococcus as the cause of diseases classified elsewhere; I95.89 Other hypotension; R00.0 Tachycardia, unspecified; N40.0 Benign prostatic hyperplasia without lower urinary tract symptoms